=== PATIENT | female | born 1960 | race Caucasian/White ===

== ENCOUNTER 2018-04-13 13:14 | Emergency (ER) | payer MEDICARE, MEDICAID ==
[~2018-04-13] VITALS: Ht 162.6 cm; Wt 75.0 kg
[2018-04-13] MEDS ORDERED: normal saline 1000ML IV soln IVB ONE (13:30)
[2018-04-13] MEDS ORDERED: morphine 4 MG/ML inj SYRINge IV PRN (13:30)
[2018-04-13] MEDS ORDERED: ondansetron/PF 4mg/2ml inj IV ONE (13:30)
[2018-04-13 14:15] LABS: BASOPHILS % (AUTO) 0.4 % (0-1); EOSINOPHILS # (AUTO) 0.1 X10'3 (0-0.9); EOSINOPHILS % (AUTO) 1.1 % (0-6); HEMATOCRIT 41.4 % (35.0-45.0); HEMOGLOBIN 13.8 g/dl (12.0-16.0); LYMPHOCYTES % (AUTO) 9.9 % (21-51); MEAN CORPUSCULAR HEMOGLOBIN 30.1 PG (27.0-31.0); MEAN CORPUSCULAR HGB CONC 33.2 g/dL (33.0-36.5); MEAN CORPUSCULAR VOLUME 90.5 FL (78-98); MEAN PLATELET VOLUME 10.8 FL (7.4-10.4); MONOCYTES # (AUTO) 0.5 X10'3 (0-0.9); NEUTROPHILS # (AUTO) 8.7 X10'3 (1.8-7.7); NEUTROPHILS % (AUTO) 83.6 % (42-75); PLATELET COUNT 225 X10'3 (140-440); RED BLOOD COUNT 4.58 X10'6 (4.20-5.60); RED CELL DISTRIBUTION WIDTH 12.9 % (11.5-14.5); WHITE BLOOD COUNT 10.4 X10'3 (4.5-11.0)
[2018-04-13 14:22] LABS: ALANINE AMINOTRANSFERASE 23 U/L (12-78); ALBUMIN 3.5 G/DL (3.4-5.0); ALBUMIN/GLOBULIN RATIO 0.9 (1.1-1.5); ALKALINE PHOSPHATASE 90 IU/L (46-116); ANION GAP 7 (8-16); ASPARTATE AMINO TRANSFERASE 17 U/L (10-37); BILIRUBIN,TOTAL 0.4 MG/DL (0.1-1.0); BLOOD UREA NITROGEN 15 MG/DL (7-18); BUN/CREATININE RATIO 16.7 (6.6-38.0); CHLORIDE 106 MMOL/L (99-107); GLUCOSE 119 MG/DL (70-104); POTASSIUM 3.8 MMOL/L (3.5-5.1); SODIUM 141 MMOL/L (135-145); TOTAL CARBON DIOXIDE 27.7 MMOL/L (24-32); TOTAL PROTEIN 7.3 G/DL (6.4-8.2); eGFR 65 ML/MIN
--- NOTE | 2018-04-13 14:23 | NUR ---
CHANGE IV DRESSING. MEDICATED PT FOR PAIN PER ORDERS. URINE AND LABS DONE PRIOR TO PT ARRIVING TO ROOM EMS WAS EXTENDED WAITING FOR A ROOM.
[2018-04-13 14:24] LABS: CLARITY,URINE CLOUDY (Clear); COLOR,URINE YELLOW (Yellow); GLUCOSE, URINE NEGATIVE (Neg); KETONES,URINE NEGATIVE (Neg); LEUKOCYTE ESTERASE ,URINE TRACE (Neg); NITRITES, URINE NEGATIVE (Neg); OCCULT BLOOD,URINE TRACE-LYSED (Neg); PH,URINE 7.5 (4.8-8.0); PROTEIN,URINE NEGATIVE (Neg); UROBILINOGEN,URINE 0.2 E.U/dL (0.2-1.0)
[2018-04-13 14:27] LABS: UA COLLECTION TYPE CLN CATCH MIDSTREAM
[2018-04-13 14:33] LABS: AMORPHOUS PHOSPHATES 2+; BACTERIA,URINE FEW /HPF (Neg); MUCUS STRANDS FEW /LPF (Neg); RBC,URINE 0-2 /HPF (0-2); SQUAMOUS EPITHELIAL CELL,UR MODERATE /LPF (FEW); WBC,URINE 0-4 /HPF (0-4)
[2018-04-13 14:37] LABS: LARGE PLATELETS FEW; PLATELET ESTIMATE NORMAL
[2018-04-13] MEDS ORDERED: ketorolac trometh. 30mg/ml inj. IV ONE (15:00)
[2018-04-13] MEDS ORDERED: morphine 4 MG/ML inj SYRINge IV ONE (15:00)
--- NOTE | 2018-04-13 15:15 | NUR ---
PT BACK FROM CT. MEDICATED WITH TORADOL AND MORPHINE FOR PAIN. AWATING CT RESULTS AND UPDATED WITH PLAN OF CARE. TWO FAMILY MEMBERS BY BEDSIDE
[2018-04-13] MEDS ORDERED: tamsulosin 0.4mg capsule PO ONE (15:40)
[2018-04-13] MEDS ORDERED: HYDR-4383 PO (15:41)
[2018-04-13] MEDS ORDERED: FLO0.4C PO (15:41)
[2018-04-13] MEDS ORDERED: NAPR-56 PO (15:41)
[2018-04-13] MEDS ORDERED: ONDA4TAB6 PO (15:41)
[2018-04-13 15:55] VITALS: BP 160/85
== END 2018-04-13 15:58 | disposition home or self-care (01) ==
LOC: ER 13:14
DX: N13.2 Hydronephrosis with renal and ureteral calculous obstruction (principal); J44.9 Chronic obstructive pulmonary disease, unspecified; M19.90 Unspecified osteoarthritis, unspecified site; G89.29 Other chronic pain; Z86.14 Personal history of Methicillin resistant Staphylococcus aureus infection; Z88.5 Allergy status to narcotic agent; Z79.899 Other long term (current) drug therapy
CPT/HCPCS: 36415; 74176; 80053; 81001; 85025; 87088; 96374; 96375; 96376; 99284; J1885; J2270; J2405; J7030